=== PATIENT | female | born 1965 | race Caucasian/White ===

== ENCOUNTER 2018-01-22 15:07 | Emergency (ER) | payer SELFPAY ==
[~2018-01-22] VITALS: Ht 170.2 cm; Wt 75.0 kg
[2018-01-22 15:51] VITALS: BP 137/91
[2018-01-22] MEDS ORDERED: CLIN-80 PO (19:22)
== END 2018-01-22 19:38 | disposition home or self-care (01) ==
LOC: ER 15:08
DX: S81.801A Unspecified open wound, right lower leg, initial encounter (principal); F15.10 Other stimulant abuse, uncomplicated; F17.200 Nicotine dependence, unspecified, uncomplicated; Z88.5 Allergy status to narcotic agent; Z79.899 Other long term (current) drug therapy; X58.XXXA Exposure to other specified factors, initial encounter; Y93.89 Activity, other specified; Y92.89 Other specified places as the place of occurrence of the external cause; Y99.8 Other external cause status
CPT/HCPCS: 93971; 99284

== ENCOUNTER 2018-05-26 23:26 | Emergency (ER) | payer OTHER ==
[~2018-05-26] VITALS: Ht 170.2 cm; Wt 65.0 kg
[~2018-05-26 23:26] MED LIST: CLIN300C85 PO
[2018-05-26 23:29] VITALS: BP 168/97
[2018-05-27] MEDS ORDERED: CEPH500C5 PO (00:09)
[2018-05-27] MEDS ORDERED: IBUP-1986 PO (00:09)
[2018-05-27] MEDS ORDERED: SULF1TAB49 PO (00:09)
== END 2018-05-27 00:20 | disposition home or self-care (01) ==
LOC: ER 23:26
DX: K13.0 Diseases of lips (principal); F15.90 Other stimulant use, unspecified, uncomplicated; F17.200 Nicotine dependence, unspecified, uncomplicated; Z90.710 Acquired absence of both cervix and uterus; Z88.5 Allergy status to narcotic agent; Z79.2 Long term (current) use of antibiotics; Z79.899 Other long term (current) drug therapy
CPT/HCPCS: 99283

== ENCOUNTER 2018-05-27 20:00 | Emergency (ER) | payer OTHER ==
[~2018-05-27] VITALS: Ht 170.2 cm; Wt 62.6 kg
[~2018-05-27 20:00] MED LIST changes: +CEPH500C5 PO; +IBUP-1986 PO; +SULF1TAB49 PO
[2018-05-27 20:39] LABS: CLARITY,URINE CLEAR (Clear); COLOR,URINE YELLOW (Yellow); GLUCOSE, URINE NEGATIVE (Neg); KETONES,URINE NEGATIVE (Neg); LEUKOCYTE ESTERASE ,URINE NEGATIVE (Neg); NITRITES, URINE NEGATIVE (Neg); OCCULT BLOOD,URINE NEGATIVE (Neg); PROTEIN,URINE NEGATIVE (Neg); UROBILINOGEN,URINE 0.2 E.U/dL (0.2-1.0)
[2018-05-27 20:45] LABS: UA COLLECTION TYPE VOIDED
[2018-05-27 21:10] LABS: BASOPHILS # (AUTO) 0.1 X10'3 (0-0.2); BASOPHILS % (AUTO) 0.7 % (0-1); EOSINOPHILS # (AUTO) 0.2 X10'3 (0-0.9); EOSINOPHILS % (AUTO) 1.4 % (0-6); HEMATOCRIT 40.7 % (35.0-45.0); HEMOGLOBIN 13.6 g/dl (12.0-16.0); LYMPHOCYTES # (AUTO) 1.5 X10'3 (1.1-4.8); LYMPHOCYTES % (AUTO) 12.3 % (21-51); MEAN CORPUSCULAR HEMOGLOBIN 27.6 PG (27.0-31.0); MEAN CORPUSCULAR HGB CONC 33.5 % (33.0-36.5); MEAN CORPUSCULAR VOLUME 82.3 FL (78-98); MEAN PLATELET VOLUME 8.4 FL (7.4-10.4); MONOCYTES # (AUTO) 0.8 X10'3 (0-0.9); MONOCYTES % (AUTO) 6.2 % (2-12); NEUTROPHILS # (AUTO) 9.8 X10'3 (1.8-7.7); NEUTROPHILS % (AUTO) 79.4 % (42-75); PLATELET COUNT 274 X10'3 (140-440); RED BLOOD COUNT 4.94 X10'6 (4.20-5.60); RED CELL DISTRIBUTION WIDTH 14.2 % (11.5-14.5); WHITE BLOOD COUNT 12.3 X10'3 (4.5-11.0)
[2018-05-27 21:55] VITALS: BP 155/93
== END 2018-05-27 22:30 | disposition left against medical advice (07) ==
LOC: ER 20:12
DX: L03.211 Cellulitis of face (principal); Z53.21 Procedure and treatment not carried out due to patient leaving prior to being seen by health care provider
CPT/HCPCS: 36415; 81003; 85025

== ENCOUNTER 2019-01-27 16:39 | Emergency (ER) | payer MEDICAID ==
[~2019-01-27] VITALS: Ht 170.2 cm; Wt 77.7 kg
[~2019-01-27 16:39] MED LIST changes: +CLIN-96 PO; -CLIN300C85 PO; -SULF1TAB49 PO
[2019-01-27 16:52] VITALS: BP 146/90
[2019-01-27] MEDS ORDERED: TRIA15CR61 TOP (17:27)
== END 2019-01-27 18:00 | disposition home or self-care (01) ==
LOC: ER 16:40
DX: S40.261A Insect bite (nonvenomous) of right shoulder, initial encounter (principal); S40.262A Insect bite (nonvenomous) of left shoulder, initial encounter; F15.90 Other stimulant use, unspecified, uncomplicated; Z90.710 Acquired absence of both cervix and uterus; Z88.5 Allergy status to narcotic agent; Z79.899 Other long term (current) drug therapy; W57.XXXA Bitten or stung by nonvenomous insect and other nonvenomous arthropods, initial encounter; Y93.89 Activity, other specified; Y92.89 Other specified places as the place of occurrence of the external cause; Y99.8 Other external cause status
CPT/HCPCS: 99283

== ENCOUNTER 2020-06-21 20:30 | Emergency (ER) | payer MEDICAID ==
[~2020-06-21] VITALS: Ht 170.2 cm; Wt 60.0 kg
[~2020-06-21 20:30] MED LIST changes: -CEPH500C5 PO; -CLIN-96 PO; +CLIN-97 PO; +HYDR28CR14 TOP
[2020-06-21] MEDS ORDERED: cephalexin 250mg capsule PO ONE (21:40)
[2020-06-21] MEDS ORDERED: CEPH500C5 PO (21:42)
[2020-06-21 22:03] VITALS: BP 118/57
== END 2020-06-21 22:07 | disposition home or self-care (01) ==
LOC: ER 20:32
DX: L03.115 Cellulitis of right lower limb (principal); F15.90 Other stimulant use, unspecified, uncomplicated; Z72.89 Other problems related to lifestyle; Z90.710 Acquired absence of both cervix and uterus; Z88.5 Allergy status to narcotic agent; Z79.2 Long term (current) use of antibiotics; Z79.899 Other long term (current) drug therapy
CPT/HCPCS: 99283

== ENCOUNTER 2025-05-13 22:11 | Emergency (ER) | payer MEDICAID ==
[~2025-05-13] VITALS: Ht 167.6 cm; Wt 69.2 kg
[~2025-05-13 22:11] MED LIST changes: +CLIN-224 PO; -CLIN-97 PO
--- NOTE | 2025-05-13 22:53 | Physician Documentation ---
History of Present Illness ~ Chief Complaint: Edema Stated Complaint: CELLULITIS Time Seen by MD: 22:22 Primary Medical Doctor: ALFREDO BAER IN [facility]PI The patient Is seen today with complaints of swelling and redness and pain of her right lower extremity. Patient states he does have history of cellulitis and thinks she has cellulitis again. She has no other concern or complaint at this time. She denies any fevers or chills or shortness of breath or chest pain or abdominal pain or nausea, vomiting, diarrhea. Medication Reconciliation Allergies: Coded Allergies: hydrocodone (Verified Allergy, Unknown, 01/22/18) Scheduled Clindamycin HCL* (Clindamycin HCL*), 1 CAP PO Q6H Hydrocortisone (hydrocortisone 1% cream), 1 APPLIC TOP Q12H Ibuprofen (Ibuprofen), 1 TAB PO Q8H Past Medical History Past Medical History: Cellulitis Past Surgical History: noncontributory, hysterectomy Alcohol Use: Occasionally Drug Use: methamphetamine Lives In: Home Review of Systems Constitutional: Denies: chills, fever, weakness Eyes: Denies: pain, blurred vision ENT: Denies: ear pain, nose pain, throat pain, mouth pain Respiratory: Denies: cough, shortness of breath Cardiovascular: Denies: chest pain, palpitations Gastrointestinal: Denies: abdominal pain, nausea, vomiting Genitourinary: Denies: burning, dysuria Female Genitalia: Denies: vaginal discharge, pelvic pain Neurological: Denies: headache, dizziness Musculoskeletal: Denies: pain, swelling Integumentary: Denies: rash, lesions Allergic/Immunologic: Denies: hives, itching Hematologic/Lymphatic: Denies: no symptoms reported Psychiatric: Denies: depression, anxiety Physical Exam Vital Signs: Temperature: 97.6, Source: Temporal, Heart Rate: 92, Respiratory Rate: 18, BP: 133/84, Pulse Oximetry: 98, Weight: 69.200 Oxygen Flow Rate: 0 General Appearance General: Awake and Alert, no acute distress. HEENT: Conjunctiva pink, Sclera clear, Mucus Membranes moist. Neck: Supple without masses and tenderness. Resp: Unlabored. Lungs clear to auscultation bilaterally. Heart: Regular Rate and rhythm, normal S1 and S2 without murmur, rub or gallop. Extremities: Patient on exam does have a mild edema of the lower extremities with her right lower extremity of the anterior lower chanel showing significant erythema and significant tenderness to palpation consistent with cellulitis. Skin: Warm and Dry. Progress Results/Orders Results/Orders Completed Orders - LOU ACOSTA Cephalexin Capsule (Keflex Capsule) (05/13/25 22:37) Vital Signs 05/13/25 22:13 Temp 97.6 Pulse 92 Resp 18 B/P (MAP) 133/84 Pulse Ox 98 O2 Flow Rate 0 Medical Decision Making Findings The patient Is seen today with complaints of swelling and redness and pain of her right lower extremity. Patient states he does have history of cellulitis and thinks she has cellulitis again. She has no other concern or complaint at this time. She denies any fevers or chills or shortness of breath or chest pain or abdominal pain or nausea, vomiting, diarrhea. Patient was given dose of Keflex in the ED tonight. Prescription of Keflex sent to patient pharmacy. To be taken one tab 3 times a day for 10 days. Patient will follow up with primary care in 2-5 days if no better as needed sooner. Return to ED with any worsening, concerning or changing symptoms. Departure Disposition: 01 HOME / SELF CARE / HOMELESS Impression: Primary Impression: Cellulitis Qualified Codes: L03.115 - Cellulitis of right lower limb Condition: Stable Discharge Instructions: Cellulitis, Adult, [id number] Additional Instructions: Patient was given dose of Keflex in the ED tonight. Prescription of Keflex sent to patient pharmacy. To be taken one tab 3 times a day for 10 days. Patient will follow up with primary care in 2-5 days if no better as needed sooner. Return to ED with any worsening, concerning or changing symptoms. Referrals: NO PRIMARY CARE PROVIDER (PCP) Prescriptions Cephalexin*Monohydrate* (Keflex*) 500 Mg Capsule 1 CAP PO Q8H for 10 Days, #30 CAP Prov: LOU ACOSTA 05/13/25 Signature Scribe Signature: No scribe Attestation: No scribe LOU ACOSTA May 13, 2025 22:53
[2025-05-13] MEDS ORDERED: CEPH-585 PO (23:05)
[2025-05-13 23:32] VITALS: BP 130/82; PULSE 90; RESP 18; TEMP 98.6; O2SAT 99
== END 2025-05-13 23:32 | disposition home or self-care (01) ==
LOC: ER 22:11
DX: L03.115 Cellulitis of right lower limb (principal); Z88.5 Allergy status to narcotic agent; F15.90 Other stimulant use, unspecified, uncomplicated; Z90.710 Acquired absence of both cervix and uterus
CPT/HCPCS: 99283